=== PATIENT | male | born 1970 | race Native Hawaiian/Other Pacific Islander ===

== ENCOUNTER 2017-09-19 16:34 | Outpatient (CLI) | payer SELFPAY | END 2017-09-19 16:35 | disposition EMS.NT | LOC: EMS 16:34 | PROVIDERS: ATTEND Surgery | DX: R07.9 Chest pain, unspecified (principal); M54.9 Dorsalgia, unspecified ==

== ENCOUNTER 2017-10-17 18:11 | Outpatient (CLI) | payer SELFPAY | END 2017-10-17 18:12 | disposition EMS.NT | LOC: EMS 18:11 | PROVIDERS: ATTEND Surgery | DX: R10.30 Lower abdominal pain, unspecified (principal) ==